=== PATIENT | female | born 1940 | race African-American/Black ===

== ENCOUNTER 2017-10-23 13:14 | Emergency (ER) | payer MEDICARE, MEDICAID ==
[~2017-10-23] VITALS: Ht 177.8 cm; Wt 109.1 kg
[2017-10-23] MEDS ORDERED: CARV3.123 PO (14:12)
[2017-10-23] MEDS ORDERED: CARB1TAB36 (14:12)
[2017-10-23] MEDS ORDERED: [UNRECOGNIZED DRUG - CODE] PO (14:12)
[2017-10-23] MEDS ORDERED: SIMV40TA4 PO (14:12)
[2017-10-23] MEDS ORDERED: ONDA4TAB12 PO (14:12)
[2017-10-23] MEDS ORDERED: LISI2.5T2 (14:12)
[2017-10-23] MEDS ORDERED: DULO30CA51 PO (14:12)
[2017-10-23] MEDS ORDERED: TOP100T PO (14:12)
[2017-10-23] MEDS ORDERED: PRIM50TA42 PO (14:12)
[2017-10-23] MEDS ORDERED: OXYB5TAB11 (14:12)
[2017-10-23] MEDS ORDERED: SENN1TAB5 PO (14:15)
[2017-10-23] MEDS ORDERED: ondansetron 4mg rapidly disintigrating tab PO PRN (14:30)
[2017-10-23 15:50] LABS: BASOPHILS % (AUTO) 0.4 % (0-1); EOSINOPHILS # (AUTO) 0.2 X10'3 (0-0.9); EOSINOPHILS % (AUTO) 4.8 % (0-6); HEMATOCRIT 39.5 % (35.0-45.0); HEMOGLOBIN 12.7 g/dl (12.0-16.0); LYMPHOCYTES # (AUTO) 1.6 X10'3 (1.1-4.8); LYMPHOCYTES % (AUTO) 33.4 % (21-51); MEAN CORPUSCULAR HEMOGLOBIN 27.4 PG (27.0-31.0); MEAN CORPUSCULAR HGB CONC 32.1 % (33.0-36.5); MEAN CORPUSCULAR VOLUME 85.3 FL (78-98); MEAN PLATELET VOLUME 8.5 FL (7.4-10.4); MONOCYTES # (AUTO) 0.4 X10'3 (0-0.9); MONOCYTES % (AUTO) 8.8 % (2-12); NEUTROPHILS # (AUTO) 2.5 X10'3 (1.8-7.7); NEUTROPHILS % (AUTO) 52.6 % (42-75); PLATELET COUNT 181 X10'3 (140-440); RED BLOOD COUNT 4.63 X10'6 (4.20-5.60); RED CELL DISTRIBUTION WIDTH 17.2 % (11.5-14.5); WHITE BLOOD COUNT 4.8 X10'3 (4.5-11.0)
[2017-10-23 16:06] LABS: ALANINE AMINOTRANSFERASE 19 U/L (12-78); ALBUMIN 2.8 G/DL (3.4-5.0); ALBUMIN/GLOBULIN RATIO 0.7 (1.1-1.5); ALKALINE PHOSPHATASE 97 IU/L (46-116); ANION GAP 8 (8-16); ASPARTATE AMINO TRANSFERASE 15 U/L (10-37); BILIRUBIN,TOTAL 0.3 MG/DL (0.1-1.0); BLOOD UREA NITROGEN 12 MG/DL (7-18); BUN/CREATININE RATIO 10.2 (6.6-38.0); CALCIUM 8.7 MG/DL (8.5-10.1); CHLORIDE 110 MMOL/L (99-107); CREATININE 1.18 MG/DL (0.40-0.90); GLUCOSE 81 MG/DL (70-104); POTASSIUM 4.2 MMOL/L (3.5-5.1); SODIUM 144 MMOL/L (135-145); TOTAL CARBON DIOXIDE 25.6 MMOL/L (24-32); TOTAL PROTEIN 6.9 G/DL (6.4-8.2); eGFR 54 ML/MIN
[2017-10-23 16:16] LABS: ETHANOL < 0.010 GM/DL (0.0-0.010)
[2017-10-23] MEDS ORDERED: ASPI81TA52 PO (17:06)
[2017-10-23] MEDS ORDERED: acetaminophen 325mg tablet PO ONE (19:30)
[2017-10-23] MEDS ORDERED: LORazepam 1 MG tablet PO ONE (19:30)
[2017-10-23] MEDS: lisinopril 2.5mg tablet PO SCH (19:48)
[2017-10-23] MEDS: topiramate 100mg tablet PO SCH (19:48)
[2017-10-23] MEDS: oxybutynin 5mg tablet PO SCH (19:48)
[2017-10-23] MEDS: carbidoba-levodopa 25-100mg tablet PO SCH (19:48)
[2017-10-23] MEDS ORDERED: primidone 50mg tablet PO SCH (21:00)
[2017-10-23] MEDS ORDERED: atorvastatin 20mg tablet PO SCH (21:00)
[2017-10-23 21:35] LABS: COLOR,URINE Yellow (Yellow); GLUCOSE, URINE Negative (Neg); KETONES,URINE Negative (Neg); LEUKOCYTE ESTERASE ,URINE Large (Neg); NITRITES, URINE Positive (Neg); OCCULT BLOOD,URINE Negative (Neg); PH,URINE 7.5 (4.8-8.0); PROTEIN,URINE Negative (Neg)
[2017-10-23 21:44] LABS: URINE AMPHETAMINE SCREEN NEGATIVE (Neg); URINE BARBITUATE SCREEN NEGATIVE (Neg); URINE BENZODIAZEPINES SCREEN NEGATIVE (Neg); URINE CANNABINOID SCREEN NEGATIVE (Neg); URINE COCAINE SCREEN NEGATIVE (Neg); URINE METHADONE SCREEN NEGATIVE (Neg); URINE OPIATE SCREEN NEGATIVE (Neg); URINE PHENCYCLIDINE SCREEN NEGATIVE (Neg)
[2017-10-23 21:46] LABS: CLARITY,URINE SLIGHTLY CLOUDY (Clear); UA COLLECTION TYPE OTHER
[2017-10-23 21:47] LABS: BACTERIA,URINE 4+ /HPF (Neg); RBC,URINE NONE SEEN /HPF (0-2); SQUAMOUS EPITHELIAL CELL,UR FEW /LPF (FEW); WBC,URINE 0-4 /HPF (0-4)
[2017-10-24] MEDS: lisinopril 2.5mg tablet PO SCH (07:52)
[2017-10-24] MEDS: oxybutynin 5mg tablet PO SCH (07:52)
[2017-10-24] MEDS: topiramate 100mg tablet PO SCH (07:52)
[2017-10-24] MEDS: carbidoba-levodopa 25-100mg tablet PO SCH (07:52)
[2017-10-24] MEDS ORDERED: carVEDilol 3.125mg tablet PO SCH (08:00)
[2017-10-24] MEDS ORDERED: aspirin 81mg tablet.DR PO SCH (08:00)
[2017-10-24] MEDS ORDERED: duloxetine 30mg CAPSULE.DR PO SCH (08:00)
[2017-10-24] MEDS ORDERED: acetaminophen 325mg tablet PO PRN (09:10)
[2017-10-24 13:35] VITALS: BP 116/72
== END 2017-10-24 13:25 | disposition home or self-care (01) ==
LOC: ER 13:15
DX: R45.851 Suicidal ideations (principal); I48.91 Unspecified atrial fibrillation; E78.00 Pure hypercholesterolemia, unspecified; I10 Essential (primary) hypertension; F32.9 Major depressive disorder, single episode, unspecified; F41.9 Anxiety disorder, unspecified; G20 Parkinson's disease; Z79.899 Other long term (current) drug therapy
CPT/HCPCS: 36415; 71045; 80053; 80305; 80320; 81001; 84443; 85025; 93005; 99285; A4353